=== PATIENT | female | born 1960 | race African-American/Black ===

== ENCOUNTER 2017-01-01 05:24 | Day surgery (SDC) | payer MEDICAID ==
[~2017-01-01] VITALS: Ht 162.6 cm; Wt 72.6 kg
[~2017-01-01 05:24] MED LIST: AMLO10TA4 PO; ATOR20TA65 PO; CHOL100026 PO; GLIP10TA10 PO; LISI10TA5 PO
[2017-01-01] MEDS ORDERED: SODIUM CHLORIDE 0.9% 1,000 ML IV SCH ×2 (05:30→07:27)
[2017-01-01] MEDS ORDERED: PHENYLEPHRINE HCL 10% OPHTH DROPS 5ML LEFTEYE NR (06:00)
[2017-01-01] MEDS ORDERED: CYCLOPENTOLATE HCL 1% OPHTH DROPS 2ML LEFTEYE NR (06:00)
[2017-01-01] MEDS ORDERED: TROPICAMIDE 1% OPHTH DROPS 15ML LEFTEYE NR (06:00)
[2017-01-01] MEDS ORDERED: BALANCED SALT IRRIG SOLN COMB1 500ML OP SCH (07:00)
[2017-01-01] MEDS ORDERED: HYALURONATE SODIUM 14 MG/ML 0.85ML SYRINGE IO ONE (07:24)
[2017-01-01] MEDS ORDERED: ONDANSETRON HCL 4MG/2ML VIAL IV PRN (07:30)
[2017-01-01] MEDS ORDERED: MORPHINE SULFATE 2 MG/ML CPJ (NOT FOR IM USE) IV PRN (07:30)
[2017-01-01] MEDS ORDERED: BUPIVACAINE HCL/PF 0.75% (7.5MG/ML) 10ML ONE ×2 (07:33→13:02)
[2017-01-01] MEDS ORDERED: INSULIN REGULAR (HUMULIN R) 300UNITS/3ML ONE (07:53)
[2017-01-01] MEDS ORDERED: MIDAZOLAM HCL 2 MG/2 ML VIAL ONE (08:05)
[2017-01-01] MEDS ORDERED: FENTANYL CITRATE/PF 50MCG/ML 2ML VIAL ONE (08:06)
[2017-01-01] MEDS ORDERED: PROPOFOL 200MG/20ML VIAL IV ONE (08:07)
[2017-01-01] MEDS ORDERED: TRYPAN BLUE 0.5 ML DISP.SYRIN IO ONE (08:12)
[2017-01-01] MEDS ORDERED: BALANCED SALT IRRIG SOLN 15ML ONE (13:02)
[2017-01-01] MEDS ORDERED: TETRACAINE 0.5% OPHTH DROPS 4ML ONE (13:02)
[2017-01-01] MEDS ORDERED: CIPROFLOXACIN 0.3% OPHTH SOLN 2.5ML ONE (13:02)
[2017-01-01] MEDS ORDERED: PREDNISOLONE ACETATE 1% OPHTH DROPS 1ML ONE (13:02)
[2017-01-01] MEDS ORDERED: LIDOCAINE HCL/PF 2% 20 MG/ML 10ML VIAL ONE (13:02)
[2017-01-01] MEDS ORDERED: ACETYLCHOLINE CHLORIDE INTRAOCULAR SOLUTION 1:100 ELECTROLYTE DILUENT IO ONE (13:02)
== END 2017-01-01 10:15 | disposition home or self-care (01) ==
LOC: OR 05:24
PROVIDERS: ATTEND Ophthalmology
DX: H25.9 Unspecified age-related cataract (principal); H52.202 Unspecified astigmatism, left eye
CPT/HCPCS: 66984; 82962; J2250; J3010; J3490; J7030; Q9957; V2632; J1815; J2704